=== PATIENT | female | born 1985 | race Caucasian/White ===

== ENCOUNTER 2018-07-31 13:19 | Emergency (ER) | payer MEDICAID ==
[2018-07-31] MEDS ORDERED: Acetaminophen 500 MG TAB ONE (16:32)
[2018-08-03 11:21] LABS: Lyme IgG/IgM AB <0.91 ISR (0.00-0.90)
== END 2018-07-31 16:35 | disposition home or self-care (01) ==
LOC: ERS 13:19
DX: S40.862A Insect bite (nonvenomous) of left upper arm, initial encounter (principal); S40.861A Insect bite (nonvenomous) of right upper arm, initial encounter; S30.860A Insect bite (nonvenomous) of lower back and pelvis, initial encounter; S00.86XA Insect bite (nonvenomous) of other part of head, initial encounter; L03.116 Cellulitis of left lower limb; Z71.6 Tobacco abuse counseling; E11.9 Type 2 diabetes mellitus without complications; G40.909 Epilepsy, unspecified, not intractable, without status epilepticus; F41.9 Anxiety disorder, unspecified; F32.9 Major depressive disorder, single episode, unspecified; F20.9 Schizophrenia, unspecified; F17.210 Nicotine dependence, cigarettes, uncomplicated
CPT/HCPCS: 36415; 86618; 99406